=== PATIENT | male | born 1950 | race Caucasian/White ===

== ENCOUNTER 2019-01-01 21:32 | Inpatient (IN) | payer OTHER ==
[~2019-01-01] VITALS: Ht 188 cm; Wt 80.3 kg
[~2019-01-01 21:32] MED LIST: KEFLEX500 MG PO; NORCO 5-325 TA1 EACH PO
[2019-01-01 21:38] VITALS: BP 151/82
[2019-01-01 21:47] VITALS: BP 151/82
[2019-01-01 22:46] LABS: ABSOLUTE EOSINOPHILS 0.1 thou/uL (0.0-0.7); ABSOLUTE LYMPHOCYTES 2.7 thou/uL (0.8-5.3); ABSOLUTE NEUTROPHILS 4.1 thou/uL (1.6-8.1); BASOPHILS 0.6 %; EOSINOPHILS 1.4 %; HEMATOCRIT 40.6 % (42.0-52.0); HEMOGLOBIN 13.7 gm/dL (14.0-18.0); MCH 29.5 pg (26.0-34.0); MCHC 33.6 g/dL (28.0-37.0); MCV 87.7 fL (80.0-100.0); MONOCYTES 12.4 %; MPV 7.6 fl. (7.2-11.1); NUCLEATED RBCS 0 /100WBC; PLATELET COUNT* 250 thou/uL (150-400); POLYS 51.6 %; RBC 4.63 mil/uL (4.50-6.00); RDW-CV 13.5 % (10.5-14.5)
[2019-01-01 22:52] LABS: ANION GAP 7 mmol/L (7-16); BUN 15 mg/dL (7-18); CALCIUM 9.1 mg/dL (8.5-10.1); CHLORIDE 100 mmol/L (98-107); CO2 28 mmol/L (21-32); CREATININE 0.8 mg/dL (0.6-1.3); GLUCOSE 106 mg/dL (70-99); POTASSIUM 3.8 mmol/L (3.5-5.1); SODIUM 135 mmol/L (136-145)
[2019-01-01 22:58] LABS: ALBUMIN 3.9 g/dL (3.4-5.0); ALKALINE PHOSPHATASE 56 U/L (46-116); MAGNESIUM 1.9 mg/dL (1.8-2.4); PROTIME 10.3 Seconds (9.20-11.50); SGOT 25 U/L (15-37); SGPT 23 U/L (30-65); TOTAL BILIRUBIN 0.2 mg/dL (<0.1-1.0); TOTAL PROTEIN 7.2 g/dL (6.4-8.2); TROPONIN-I LEVEL <0.06 ng/mL (<0.06)
[2019-01-01 23:43] VITALS: BP 146/85
[2019-01-02] VITALS: BP 155/75
[2019-01-02] MEDS ORDERED: METAMUCIL FIBE3.4 GM PO (00:15)
[2019-01-02] MEDS ORDERED: OCUVITE EYE +1 EACH PO (00:15)
[2019-01-02] MEDS ORDERED: ASPIR 8181 MG PO (00:16)
[2019-01-02] MEDS ORDERED: FISH OIL 1,001000 M2 PO (00:16)
[2019-01-02] MEDS ORDERED: GLUCOSAMINE-CH1 EA15 PO (00:17)
--- NOTE | 2019-01-02 01:27 | NUR ---
68 Y/O MALE ADMITTED TO TELEMETRY ROOM 219 WITH AN ADMITTING DIAGNOSIS OF NEAR SYNCOPE AND PALPITATIONS. PT DENIES PAIN, CP, N/V/D, DIZZINESS UPON ADMIT. PT STATES HE FEELS MUCH BETTER AFTER RECEIVING FLUIDS IN ER. PT IS UP TO BR INDEPENDENT, STEADY GAIT. TRACING SR ON MONITOR. VSS. HOURLY ROUNDING IN PLACE FOR SAFETY. CLWR.
[2019-01-02 04:00] VITALS: BP 132/73
--- NOTE | 2019-01-02 06:01 | NUR ---
PT HAS CONTINUED TO DENY CP, PAIN, N//V/D, DIZZINESS. IVF INFUSING OREDERED. REMIANS SR ON MONITOR. VSS. CLWR.
[2019-01-02 08:00] VITALS: BP 168/82
[2019-01-02] MEDS ORDERED: SYNTHROID100 MC1 PO (11:50)
[2019-01-02 12:01] VITALS: BP 168/82
[2019-01-02 12:26] VITALS: BP 100/71
[2019-01-02 12:27] VITALS: BP 152/65
--- NOTE | 2019-01-02 14:03 | EXE ---
[place] [address] STRESS ECHOCARDIOGRAM Name: LEAH MCMILLAN Room: 219-P [facility] IN ..#: [id number] Admission: 01/01/19 Attend Phys: Alfonso Phan Discharge: Date of : 52 Date of Service: 01/02/19 1402 Report #: [id number] THIS REPORT FOR: //name// APPROVED REPORT Study performed: 01/02/2019 12:50:57 Exam: Stress Echocardiogram Indication: Near Syncope, Fatigue Patient Location: In-Patient Stress Nurse: Lindsey Roland RN Room #: [facility] Supervising Physician: Jose Antonio Lake MD Ht: 6 ft 2 in HR: 90 bpm BP: 125/92 mmHg Procedure The patient underwent an Exercise Stress Test using the Azael Protocol. Blood pressure, heart rate, and EKG were monitored. An Echocardiogram was performed by compliance technician in four stages in quad fashion. At peak stress, four selected images were obtained and placed side by side with resting images for comparison. Stress Test Details Stress Test: Exercise stress testing was performed using a Azael protocol. HR Resting HR: 90 bpm Max Heart Rate (APMHR): 153 bpm Max HR Achieved: 152 bpm Target HR (85% APMHR): 130 bpm % of APMHR: 99 Recovery HR: 98 bpm HR response to stress: Normal HR response to stress BP Resting BP: 125/92 mmHg Max BP: 226/97 mmHg Recovery BP: 174/113 mmHg BP response to stress: Normal blood pressure response to stress. ECG Resting ECG: Sinus Rhythm with unifocal PVCs Stress ECG: Sinus Tachycardia with unifocal PVCs ST Change: none Arrhythmia: [facility] [place] [address] STRESS ECHOCARDIOGRAM Name: LEAH MCMILLAN Room: [address] IN [facility]#: [id number] Admission: 01/01/19 Attend Phys: Alfonso Phan Discharge: Date of : 52 Date of Service: 01/02/19 1402 Report #: [id number] Recovery ECG: Sinus Rhythm with unifocal PVCs Recovery ST Change: none Recovery Arrhythmia: VPC Clinical Reason for Termination: Completed protocol Exercise duration: 8 min 4 sec Highest Stage Achieved: Stage 3: 3.4 mph at 14% grade. Exercise capacity: 10.16 METs The patient tolerated standard Azael protocol exercise stress without significant symptoms. Stress ECG Conclusion The baseline 12-lead EKG showed sinus rhythm with unifocal premature ventricular contractions. EKGs obtained during and post exercise showed sinus rhythm and sinus tachycardia with continued unifocal premature ventricular contractions. There were no significant ST or T wave changes when compared to baseline. No other stress-induced arrhythmias were noted. Pre-Stress Echo The resting Echocardiogram showed normal left ventricular contractility with an estimated Ejection Fraction of about 55-60%. Post-Stress Echo The stress Echocardiogram showed normal left ventricular contractility with an estimated Ejection Fraction of about >70%. Conclusion Clinical Response: Non-ischemic Exercise Capacity: Average Stress ECG Response: Non-ischemic Stress Echo Images: Non-ischemic Other Information Study Quality: Good <ELECTRONICALLY SIGNED> By: Jose Antonio Lake MD, FACC 01/02/19 1402 01 140 Jose Antonio Lake MD, FACC /INF
--- NOTE | 2019-01-02 14:04 | NUR ---
Assessment: CM spoke w/pt and his sister, Mariana to discuss d/c planning, home situation and to educate on role of CM. pt is A&Ox4. Lives at home w/sister and independent of all ADLs. pt plan is to d/c back to home. Has no DMEs. No hx w/SNF or HH. pt denies any needs at this time. CM to cont to follow to provide assistance PRN.
--- NOTE | 2019-01-02 15:57 | NUR ---
CM GAVE PT A LIST OF PROVIDERS.
--- NOTE | 2019-01-02 16:15 | NUR ---
ORDERS RECEIVED TO DISCHARGE [facility] HOME TO SELF CARE WITH SISTER. MED REC, MEDICATION EDUCATION, STROKE EDUCATION, AND NEED FOR FOLLOW UP APPOINTMENT WITH A PRIMARY CARE PHYSICIAN FOR CONTINUED MONITORING OF THYROID FUNCTION COVERD WITH PATIENT AND SISTER. IV AND TELEMETRY PACK REMOMVED. PATIENT ESCORTED BY [employer] TO AWAITING CAR WITH SISTER PRESENT. DISCHARGE TIME OF 16:00. HOURYK ROUNDING COMPLETD FOR PATIENT SAFETY.
--- NOTE | 2019-01-02 16:30 | EKG ---
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 : 1950 Requested By: Sue Anguiano Order Number: [id number] MD: Jose Antonio Lake Measurements Intervals [place] Rate: 77 P: 34 MN: 175 QRS: 39 QRSD: 102 T: 29 QT: 374 QTc: 424 Interpretive Statements Sinus rhythm Baseline wander in lead(s) V2,V3 Compared to ECG 06/23/2013 23:38:22 No significant changes Electronically Signed On 01-02-2019 16:30:13 BATTER MIXER by Jose Antonio Lake [email or web address] <ELECTRONICALLY SIGNED> By: Jose Antonio Lake MD, FACC 01/02/19 1630 02 02 Jose Antonio Lake MD, [facility] /EPI
== END 2019-01-02 16:00 | disposition home or self-care (01) | DRG 312 ==
LOC: M.ERS 21:32 → M.2W 23:30 → M.TBA-ER 23:30 → M.2W 23:43
PROVIDERS: Nurse Practitioner Family; ADMIT Internal Medicine
DX: R55 Syncope and collapse (principal); R53.1 Weakness; R42 Dizziness and giddiness; R00.2 Palpitations; M54.9 Dorsalgia, unspecified; Z79.82 Long term (current) use of aspirin; Z79.899 Other long term (current) drug therapy